=== PATIENT | male | born 1985 | race Caucasian/White ===

== ENCOUNTER 2021-07-03 09:29 | Emergency (ER) | payer OTHER, SELFPAY ==
[2021-07-03 09:40] VITALS: BP 127/77; PULSE 89; RESP 18; TEMP 36.1; O2SAT 95; BMI 28.8
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
[2021-07-03 10:41] VITALS: BP 112/76; PULSE 65; RESP 12; O2SAT 98
[2021-07-03 10:58] LABS: Appearance Urine CLEAR; Color Urine YELLOW; Glucose Urine UA NEG (NEG); Leukocyte Esterase Urine NEG (NEG); Nitrite Urine NEG (NEG); Specific Gravity - Urine >= 1.030 (1.005-1.025); Urine Blood NEG (NEG); Urine Ketones NEG (NEG); Urine Protein NEG (NEG-TRACE)
[2021-07-03 11:11] LABS: Amphetamine Screen Urine Not Detected (Not Detect); Barbiturates, Urine Not Detected (Not Detect); Benzodiazepines Screen Urine Not Detected (Not Detect); Cannabinoid Screen Urine Not Detected (Not Detect); Cocaine Screen Urine Not Detected (Not Detect); Fentanyl, urine Not Detected (Not Detect); Opiate Screen Urine Not Detected (Not Detect); Phencyclidine Screen Urine Not Detected (Not Detect)
== END 2021-07-03 11:18 | disposition home or self-care (01) ==
LOC: HO.ED 10:17
PROVIDERS: Emergency Provider Internal Medicine
DX: R53.81 Other malaise (principal); Z03.6 Encounter for observation for suspected toxic effect from ingested substance ruled out
CPT/HCPCS: 80307; 81003; 99284